=== PATIENT | male | born 1960 | race American Indian/Alaskan Native ===

== ENCOUNTER 2016-11-19 12:43 | Emergency (ER) | payer MEDICAID ==
[2016-11-19 13:01] VITALS: BP 133/90; PULSE 75; RESP 18; TEMP 98.3; O2SAT 95
--- NOTE | 2016-11-19 14:21 | C.PDOC ---
History Of Present Illness 56 year old male presents to the ED for evaluation of right eye itchiness, discharge and swelling which began around 1 week ago. 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 Patient underwent "cleaning" of the eye 1 week ago, after which his symptoms developed. Patient was advised to place a type of oil in his eye, but found no improvement. Patient denies fever, chills, or direct injury/trauma to the affected eye. Time Seen by Provider: 11/19/16 13:45 Chief Complaint (Nursing): Eye Problem History Per: Patient History/Exam Limitations: no limitations Onset/Duration Of Symptoms: Days (1 week) Current Symptoms Are (Timing): Still Present Injury To Eye?: No Quality: denies: "Pain" Associated Symptoms: Swelling, Itching, Discharge From Eye Additional History Per: Patient Past Medical History Reviewed: Historical Data, Nursing Documentation, Vital Signs Vital Signs: Last Vital Signs Temp 98.3 F 11/19/16 12:59 Pulse 75 11/19/16 12:59 Resp 18 11/19/16 12:59 BP 133/90 11/19/16 12:59 Pulse Ox 95 11/19/16 17:44 - Medical History PMH: Diabetes, HTN Surgical History: No Surg Hx - [facility] Procedures EXCIS DEBRIDE OF WOUND, INFECT, OR BURN (07/20/13) FREE SKIN GRAFT NEC (07/20/13) NONEXCIS DEBRID OF WOUND, INFECT, OR BURN (07/20/13) Family History: States: Unknown Family Hx - Social History Hx Tobacco Use: Yes Hx Alcohol Use: Yes (OCCASSIONALLY) Hx Substance Use: No - Immunization History Hx Tetanus Toxoid Vaccination: No Hx Influenza Vaccination: No Hx Pneumococcal Vaccination: No Review Of Systems Constitutional: Negative for: Fever, Chills Eyes: Positive for: Other (itchiness, swelling and discharge to right eye. no trauma ) Physical Exam - Physical Exam Appears: Non-toxic, No Acute Distress Skin: Normal Color, Warm, Dry Head: Atraumatic, Normacephalic Eye(s): right: Other (purulent discharge, swelling, mild erythema and scabbing to right upper eyelid ), left: Normal Inspection Nose: Normal Oral Mucosa: Moist Chest: Symmetrical Respiratory: No Accessory Muscle Use Neurological/Psych: Oriented x3, Normal Speech, Normal Cognition ED Course And Treatment O2 Sat by Pulse Oximetry: 95 (on RA) Pulse Ox Interpretation: Normal Progress Note: Case disccussed with Dr. Jain, who advises to send patient to his office for a follow-up. Patient is advised to follow up with Dr. Jain in his office today, following discharge. Case discsused with Dr Regalado, who evlauted pt and agreed upon plan and treatment. Reassessment Condition: Unchanged Disposition - Disposition Referrals: Koffi Jain MD [Staff Provider] - Disposition: HOME/ ROUTINE Disposition Time: 14:20 Condition: STABLE Additional Instructions: Follow up with eye doctor right after discharge. Instructions: Conjunctivitis (ED) Forms: frooly (Danish) - Clinical Impression Clinical Impression: Conjunctivitis - PA / [employer] / Resident Statement MD/DO has reviewed & agrees with the documentation as recorded. - Scribe Statement The provider has reviewed the documentation as recorded by the Scribe (Jessica De Santiago) All medical record entries made by the Scribe were at my direction and personally dictated by me. I have reviewed the chart and agree that the record accurately reflects my personal performance of the history, physical exam, medical decision making, and the department course for this patient. I have also personally directed, reviewed, and agree with the discharge instructions and disposition.
== END 2016-11-19 14:30 | disposition home or self-care (01) ==
LOC: C.ER 12:43
DX: H10.9 Unspecified conjunctivitis (principal)